=== PATIENT | female | born 1940 | race Caucasian/White ===

== ENCOUNTER 2017-04-29 12:35 | Emergency (ER) | payer MEDICARE, MEDICAID ==
[~2017-04-29] VITALS: Ht 162.6 cm; Wt 62.7 kg
[2017-04-29] MEDS ORDERED: LIDOCAINE HCL 1% 10 ML VIAL INJ ONE (13:45)
[2017-04-29 14:44] VITALS: BP 140/83
== END 2017-04-29 14:45 | disposition home or self-care (01) ==
LOC: EMS 12:38
DX: S60.021A Contusion of right index finger without damage to nail, initial encounter (principal); I10 Essential (primary) hypertension; E03.9 Hypothyroidism, unspecified; X58.XXXA Exposure to other specified factors, initial encounter; Y93.89 Activity, other specified; Y92.89 Other specified places as the place of occurrence of the external cause; Y99.8 Other external cause status
CPT/HCPCS: 26010; 99283; J3490

== ENCOUNTER 2017-05-02 11:13 | Emergency (ER) | payer MEDICARE, MEDICAID ==
[~2017-05-02] VITALS: Ht 162.6 cm; Wt 62.5 kg
[2017-05-02] MEDS ORDERED: ALLO300 PO (11:21)
[2017-05-02] MEDS ORDERED: LOSA25TA21 PO (11:21)
[2017-05-02] MEDS ORDERED: SERT50TA12 PO (11:21)
[2017-05-02] MEDS ORDERED: AMLO-511 PO (11:21)
[2017-05-02] MEDS ORDERED: OMEP20 PO (11:21)
[2017-05-02] MEDS ORDERED: LEVO25TA9 PO (11:21)
[2017-05-02] MEDS ORDERED: ASPI81 PO (11:21)
[2017-05-02] MEDS ORDERED: ALEN70TA48 PO (11:21)
[2017-05-02 11:46] VITALS: BP 145/54
== END 2017-05-02 12:26 | disposition home or self-care (01) ==
LOC: EMS 11:13
DX: S60.021A Contusion of right index finger without damage to nail, initial encounter (principal); I10 Essential (primary) hypertension; E03.9 Hypothyroidism, unspecified; Z79.82 Long term (current) use of aspirin; X58.XXXA Exposure to other specified factors, initial encounter; Y93.89 Activity, other specified; Y92.89 Other specified places as the place of occurrence of the external cause; Y99.8 Other external cause status
CPT/HCPCS: 99283

== ENCOUNTER 2018-01-27 11:34 | Emergency (ER) | payer MEDICAID, MEDICARE ==
[~2018-01-27] VITALS: Ht 165.1 cm; Wt 59.1 kg
[~2018-01-27 11:34] MED LIST: ALEN70TA48 PO; ALLO300 PO; AMLO-511 PO; ASPI81 PO; LEVO25TA9 PO; LOSA25TA21 PO; OMEP20 PO; SERT50TA12 PO
[2018-01-27] MEDS ORDERED: ONDANSETRON HCL 4 MG/2 ML VIAL IM ONE (12:00)
[2018-01-27] MEDS ORDERED: MORPHINE SULFATE 4 MG/ML SYRINGE IM ONE (12:00)
[2018-01-27] MEDS ORDERED: MORPHINE SULFATE 4 MG/ML SYRINGE IVP ONE (12:15)
[2018-01-27] MEDS ORDERED: ONDANSETRON HCL 4 MG/2 ML VIAL IVP ONE (12:15)
[2018-01-27] MEDS ORDERED: CALC-1038 PO (12:21)
[2018-01-27] MEDS ORDERED: CYAN500 PO (12:21)
[2018-01-27] MEDS ORDERED: CETI-290 PO (12:21)
[2018-01-27] MEDS ORDERED: TRAM50TA4 PO (12:21)
[2018-01-27] MEDS ORDERED: CALC-916 PO (14:00)
[2018-01-27] MEDS ORDERED: HYDROmorphone 2 MG/ML SYRINGE IVP ONE ×2 (14:00→18:00)
[2018-01-27 17:30] LABS: BASOPHILS % (AUTO) 0.5 % (0.0-2.0); EOSINOPHILS % (AUTO) 0.6 % (1.0-6.0); HEMATOCRIT 34.3 % (36-46); HEMOGLOBIN 11.2 g/dL (12.0-16.0); LYMPHOCYTES # (AUTO) 1.6 K/uL (1.0-4.8); LYMPHOCYTES % (AUTO) 8.7 % (22.0-44.0); MEAN CORPUSCULAR HEMOGLOBIN 28.3 pg (26.0-34.0); MEAN CORPUSCULAR HGB CONC 32.8 G/dL (31.0-37.0); MEAN CORPUSCULAR VOLUME 86 fL (80-100); MONOCYTES # (AUTO) 1.1 K/uL (0.1-1.0); NEUTROPHILS # (AUTO) 15.2 K/uL (1.8-7.7); NEUTROPHILS % (AUTO) 84.2 % (40.0-70.0); PLATELET COUNT (AUTO) 302 K/uL (150-450); RED BLOOD CELL COUNT(AUTO) 3.97 MIL/uL (4.00-5.20); RED CELL DISTRIBUTION WIDTH 17.4 % (11.5-14.5)
[2018-01-27 17:46] LABS: CREATININE 1.73 mg/dL (0.60-1.30); POTASSIUM 4.7 mmol/L (3.5-5.1)
[2018-01-27 17:53] LABS: ALBUMIN 3.6 g/dL (3.4-5.0); BILIRUBIN,TOTAL 0.4 mg/dL (0.1-1.0); TOTAL PROTEIN, SERUM 6.7 g/dL (6.4-8.2)
[2018-01-27 19:34] VITALS: BP 133/66
== END 2018-01-27 21:19 | disposition short-term general hospital (02) ==
LOC: EMS 11:35
DX: S72.001A Fracture of unspecified part of neck of right femur, initial encounter for closed fracture (principal); S22.31XA Fracture of one rib, right side, initial encounter for closed fracture; F03.90 Unspecified dementia, unspecified severity, without behavioral disturbance, psychotic disturbance, mood disturbance, and anxiety; K21.9 Gastro-esophageal reflux disease without esophagitis; I10 Essential (primary) hypertension; E05.90 Thyrotoxicosis, unspecified without thyrotoxic crisis or storm; E03.9 Hypothyroidism, unspecified; Z76.0 Encounter for issue of repeat prescription; W19.XXXA Unspecified fall, initial encounter; Y93.89 Activity, other specified; Y92.89 Other specified places as the place of occurrence of the external cause; Y99.8 Other external cause status
CPT/HCPCS: 36415; 71101; 72040; 73502; 73552; 73562; 80053; 85025; 85610; 85730; 93005; 96374; 96375; 96376; 99285; J1170; J2270; J2405